=== PATIENT | male | born 1975 | race Caucasian/White ===

== ENCOUNTER 2024-11-27 15:24 | Emergency (ER) | payer SELFPAY ==
[2024-11-27 15:25] VITALS: BP 135/92; PULSE 83; RESP 16; TEMP 36.2; O2SAT 95; BMI 34.0
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
[2024-11-27 16:32] VITALS: BP 125/74; PULSE 78; RESP 16; TEMP 36.2; O2SAT 95
[2024-11-27] MEDS: Ibuprofen 200 MG Tablet 400 MG PO (16:35)
[2024-11-27] MEDS: Lidocaine 5% Patch 1 PATCH TOPICAL (16:35)
[2024-11-27] MEDS: Acetaminophen 325 MG Tablet 650 MG PO (16:35)
== END 2024-11-27 16:39 | disposition home or self-care (01) ==
LOC: ED 16:35
PROVIDERS: Emergency Provider Emergency Medicine; Visit Provider Emergency Medicine
DX: S09.90XA Unspecified injury of head, initial encounter (principal); S40.011A Contusion of right shoulder, initial encounter; S20.229A Contusion of unspecified back wall of thorax, initial encounter; V49.50XA Passenger injured in collision with unspecified motor vehicles in traffic accident, initial encounter; W22.19XA Striking against or struck by other automobile airbag, initial encounter; Z87.891 Personal history of nicotine dependence
CPT/HCPCS: 73030; 99285